=== PATIENT | female | born 1980 | race African-American/Black ===

== ENCOUNTER 2019-03-28 16:37 | Inpatient (IN) | payer MEDICAID ==
[~2019-03-28] VITALS: Ht 172.7 cm; Wt 146.5 kg
[2019-03-28] MEDS ORDERED: SODIUM CHLORIDE 0.9% 1,000 ML IV ONE (17:05)
[2019-03-28 17:44] LABS: BASOPHILS % 0.7 % (0.0-2.0); EOSINOPHILS % 6.2 % (0.0-5.0); HEMATOCRIT. 33.5 % (36.0-48.0); HEMOGLOBIN. 11.2 g/dL (12.0-16.0); MEAN CORPUSCULAR HEMOGLOBIN 28.8 pg (28.0-32.0); MEAN CORPUSCULAR VOLUME 86.5 fL (81.0-99.0); MEAN PLATELET VOLUME 9.3 fl (7.4-10.4); MONOCYTES % 6.7 % (2.0-8.0); NEUTROPHILS % 50.4 % (40.0-76.0); PLATELET 262 x1000/uL (130-400); RED BLOOD CELL COUNT 3.87 mill/uL (4.2-5.4)
[2019-03-28 17:45] LABS: CHLORIDE 103 mEq/L (98-107)
[2019-03-28 17:49] LABS: ETHANOL BLOOD < 10 mg/dL
[2019-03-28] MEDS ORDERED: ASPIRIN 81MG TABLET PO ONE (18:00)
[2019-03-28] MEDS ORDERED: POTASSIUM CHLORIDE 20MEQ TABLET SR PO ONE (18:00)
[2019-03-28] MEDS ORDERED: NITROGLYCERIN 0.4MG TABLET SL SL PRN (18:00)
[2019-03-28 18:16] LABS: HCG SCREEN NEGATIVE
[2019-03-28 18:18] LABS: D-DIMER 1.35 mg/L FEU (<0.50); PARTIAL THROMBOPLASTIN TIME 29.2 sec (23.4-31.0)
[2019-03-28 18:26] LABS: CLARITY URINE CLEAR (CLEAR); COLOR URINE YELLOW (YELLOW); KETONES URINE NEGATIVE (NEGATIVE); LEUKOCYTE ESTERASE URINE NEGATIVE (NEGATIVE); NITRITE URINE NEGATIVE (NEGATIVE); OCCULT BLOOD URINE 1+ (NEGATIVE); PH URINE 5.5 (4.5-8.0); PROTEIN URINE NEGATIVE (NEGATIVE); SPECIFIC GRAVITY URINE 1.011 (1.005-1.030); UROBILINOGEN URINE 0.2 E.U./dL (0.2-1.0)
[2019-03-28 18:40] LABS: CANNABINOID URINE SCREEN NEGATIVE (NEGATIVE); METHADONE URINE SCREEN NEGATIVE (NEGATIVE); PHENCYCLIDINE URINE SCREEN NEGATIVE (NEGATIVE)
[2019-03-28 18:41] LABS: *AMPHETAMINES SCREEN URINE NEGATIVE (NEGATIVE); *BARBITURATES SCREEN URINE NEGATIVE (NEGATIVE); *BENZODIAZEPINES SCREEN URINE NEGATIVE (NEGATIVE); *COCAINE SCREEN URINE NEGATIVE (NEGATIVE)
[2019-03-28 18:47] LABS: OPIATES URINE SCREEN PRESUMTIVE POSITIVE (NEGATIVE)
[2019-03-28] MEDS ORDERED: IOHEXOL-350 100 ML BOTTLE ONE ×3 (19:59→23:17)
[2019-03-28] MEDS ORDERED: MORPHINE SULFATE 4 MG/ML CPJ (NOT FOR IM USE) IV STA (21:14)
[2019-03-28] MEDS ORDERED: ONDANSETRON HCL 4MG/2ML INJ IV STA (21:14)
[2019-03-28 23:10] VITALS: BP 131/67
[2019-03-29] MEDS ORDERED: GABA-531 MT (00:05)
[2019-03-29] MEDS ORDERED: ATEN50TA MT (00:05)
[2019-03-29] MEDS ORDERED: AMLO10TA80 MT (00:05)
[2019-03-29] MEDS ORDERED: ONDANSETRON HCL 4MG/2ML INJ IV PRN (00:30)
[2019-03-29] MEDS: DIPHENHYDRAMINE 50MG/ML VIAL IV PRN ×4 (00:40→20:37)
[2019-03-29 01:08] LABS: BASOPHILS % 0.7 % (0.0-2.0); EOSINOPHILS % 5.1 % (0.0-5.0); HEMATOCRIT. 32.1 % (36.0-48.0); HEMOGLOBIN. 10.9 g/dL (12.0-16.0); LYMPHOCYTES % 35.9 % (20.0-50.0); MEAN CORPUSCULAR HEMOGLOBIN 29.4 pg (28.0-32.0); MEAN CORPUSCULAR VOLUME 86.8 fL (81.0-99.0); MONOCYTES % 7.8 % (2.0-8.0); NEUTROPHILS % 50.5 % (40.0-76.0); PLATELET 243 x1000/uL (130-400)
[2019-03-29 01:36] LABS: CHLORIDE 103 mEq/L (98-107)
[2019-03-29 01:44] LABS: CREATINE KINASE 197 IU/L (26-192)
[2019-03-29 01:46] LABS: CREATINE KINASE MB FRACTION < 1.0 ng/mL (0.5-3.6)
[2019-03-29 04:00] VITALS: BP 98/40
[2019-03-29] MEDS: GABAPENTIN 300MG CAPSULE PO SCH ×3 (05:59→22:19)
[2019-03-29] MEDS: HYDROCODONE/ACETAMINOPHEN 5/325MG TABLET PO PRN ×2 (06:41→14:30)
[2019-03-29 08:00] VITALS: BP 140/71
[2019-03-29] MEDS ORDERED: PNEUMOCOCCAL 23-VAL P-SAC VAC 0.5 ML IM ONE (08:00)
[2019-03-29] MEDS: AMLODIPINE 10MG TABLET PO SCH (08:38)
[2019-03-29] MEDS ORDERED: POTASSIUM CHLORIDE INJ 40 MEQ in DEXT 5% WATER 250 ML IV SCH (09:00)
[2019-03-29 09:42] LABS: CREATINE KINASE 171 IU/L (26-192)
[2019-03-29 09:44] LABS: CREATINE KINASE MB FRACTION < 1.0 ng/mL (0.5-3.6)
[2019-03-29 12:00] VITALS: BP 131/74
[2019-03-29] MEDS: LOSARTAN POTASSIUM 25 MG TABLET PO SCH (14:28)
[2019-03-29] MEDS: ENOXAPARIN 40MG/0.4ML SYR SUBCUT SCH ×2 (14:35→20:37)
[2019-03-29 16:00] VITALS: BP 145/69
[2019-03-29] MEDS ORDERED: POTASSIUM CHLORIDE 20MEQ TABLET SR PO NR (18:15)
[2019-03-29] MEDS: MORPHINE SULFATE 2 MG/ML CPJ (NOT FOR IM USE) IV PRN (18:44)
[2019-03-29 20:00] VITALS: BP_SYST 126; BP_SYST 135; BP_SYST 150; BP_DIAS 64; BP_DIAS 71; BP_DIAS 83
[2019-03-30] VITALS (8 sets, daily range): BP systolic 125–170; BP diastolic 56–95
[2019-03-30] MEDS: MORPHINE SULFATE 2 MG/ML CPJ (NOT FOR IM USE) IV PRN ×5 (00:25→22:49)
[2019-03-30] MEDS: DIPHENHYDRAMINE 50MG/ML VIAL IV PRN ×3 (04:22→18:56)
[2019-03-30] MEDS: GABAPENTIN 300MG CAPSULE PO SCH ×3 (06:09→22:36)
[2019-03-30 07:28] LABS: BASOPHILS % 0.5 % (0.0-2.0); EOSINOPHILS % 8.4 % (0.0-5.0); HEMOGLOBIN. 10.3 g/dL (12.0-16.0); LYMPHOCYTES % 38.8 % (20.0-50.0); MEAN CORPUSCULAR HEMOGLOBIN 28.8 pg (28.0-32.0); MEAN CORPUSCULAR VOLUME 86.8 fL (81.0-99.0); MEAN PLATELET VOLUME 9.6 fl (7.4-10.4); NEUTROPHILS % 44.3 % (40.0-76.0); PLATELET 226 x1000/uL (130-400); RED BLOOD CELL COUNT 3.58 mill/uL (4.2-5.4); RED CELL DISTRIBUTION WIDTH 15.5 % (11.6-14.6)
[2019-03-30 07:34] LABS: CHLORIDE 107 mEq/L (98-107)
[2019-03-30 07:43] LABS: CREATINE KINASE 114 IU/L (26-192)
[2019-03-30 07:45] LABS: CREATINE KINASE MB FRACTION < 1.0 ng/mL (0.5-3.6)
[2019-03-30] MEDS: AMLODIPINE 10MG TABLET PO SCH (08:44)
[2019-03-30] MEDS: HYDROCODONE/ACETAMINOPHEN 5/325MG TABLET PO PRN ×2 (08:45→15:22)
[2019-03-30] MEDS: ENOXAPARIN 40MG/0.4ML SYR SUBCUT SCH ×2 (08:46→22:48)
[2019-03-30] MEDS: LOSARTAN POTASSIUM 25 MG TABLET PO SCH ×2 (08:46→22:36)
[2019-03-30] MEDS: ATENOLOL 25MG TABLET PO SCH (15:22)
[2019-03-30] MEDS: ZOLPIDEM TARTRATE 5MG TABLET PO PRN (22:45)
[2019-03-31] VITALS: BP 154/86
[2019-03-31] MEDS: DIPHENHYDRAMINE 50MG/ML VIAL IV PRN ×2 (01:02→17:26)
[2019-03-31 04:00] VITALS: BP 146/75
[2019-03-31] MEDS: GABAPENTIN 300MG CAPSULE PO SCH ×3 (05:30→21:20)
[2019-03-31] MEDS: MORPHINE SULFATE 2 MG/ML CPJ (NOT FOR IM USE) IV PRN ×4 (05:30→23:00)
[2019-03-31 08:00] VITALS: BP 154/98
[2019-03-31] MEDS: LOSARTAN POTASSIUM 25 MG TABLET PO SCH (08:59)
[2019-03-31] MEDS: AMLODIPINE 10MG TABLET PO SCH (08:59)
[2019-03-31] MEDS: HYDROCODONE/ACETAMINOPHEN 5/325MG TABLET PO PRN ×2 (08:59→20:16)
[2019-03-31] MEDS: ATENOLOL 25MG TABLET PO SCH ×2 (08:59→17:42)
[2019-03-31] MEDS ORDERED: LIDOCAINE HCL 1% 20ML VIAL (Pyxis) INJ ONE (10:13)
[2019-03-31 12:55] VITALS: BP_SYST 193; BP_SYST 203; BP_SYST 206; BP_DIAS 107; BP_DIAS 118; BP_DIAS 90
[2019-03-31] MEDS ORDERED: CLONIDINE 0.1MG TABLET PO PRN (13:45)
[2019-03-31] MEDS: CLONIDINE 0.1MG TABLET PO SCH ×2 (14:49→21:20)
[2019-03-31] MEDS ORDERED: IOHEXOL-350 100 ML BOTTLE ONE (15:16)
[2019-03-31 16:00] VITALS: BP 149/90
[2019-03-31 20:00] VITALS: BP_SYST 152; BP_SYST 161; BP_SYST 166; BP_DIAS 75; BP_DIAS 89; BP_DIAS 97
[2019-03-31] MEDS: ENOXAPARIN 40MG/0.4ML SYR SUBCUT SCH (20:15)
[2019-03-31] MEDS: LOSARTAN POTASSIUM 50 MG TABLET PO SCH (20:18)
[2019-03-31] MEDS: ZOLPIDEM TARTRATE 5MG TABLET PO PRN (23:51)
[2019-04-01] VITALS: BP 143/85
[2019-04-01] MEDS: HYDROCODONE/ACETAMINOPHEN 5/325MG TABLET PO PRN ×2 (03:12→08:05)
[2019-04-01 03:45] VITALS: BP 130/68
[2019-04-01] MEDS: GABAPENTIN 300MG CAPSULE PO SCH ×2 (05:36→14:22)
[2019-04-01] MEDS: CLONIDINE 0.1MG TABLET PO SCH ×2 (05:36→14:22)
[2019-04-01] MEDS: MORPHINE SULFATE 2 MG/ML CPJ (NOT FOR IM USE) IV PRN ×3 (06:05→15:56)
[2019-04-01 08:00] VITALS: BP_SYST 138; BP_SYST 176; BP_SYST 183; BP_DIAS 100; BP_DIAS 107; BP_DIAS 72
[2019-04-01] MEDS: DIPHENHYDRAMINE 50MG/ML VIAL IV PRN (09:19)
[2019-04-01] MEDS: AMLODIPINE 10MG TABLET PO SCH (09:36)
[2019-04-01] MEDS: LOSARTAN POTASSIUM 50 MG TABLET PO SCH (09:36)
[2019-04-01] MEDS: ATENOLOL 25MG TABLET PO SCH ×2 (09:36→16:37)
[2019-04-01] MEDS: ENOXAPARIN 40MG/0.4ML SYR SUBCUT SCH (09:38)
[2019-04-01 12:00] VITALS: BP 133/75
[2019-04-01 14:35] VITALS: BP 133/75
[2019-04-01 15:56] VITALS: BP 133/75
== END 2019-04-01 17:40 | disposition home or self-care (01) | DRG 48 ==
LOC: ER 16:48 → 6WST 21:42 → EDBEDREQTM 21:46 → EDBEDREQ 21:46 → ENRESERV 22:31
PROVIDERS: ADMIT Internal Medicine; ATTEND Internal Medicine
PROC: 02HV33Z Insertion of Infusion Device into Superior Vena Cava, Percutaneous Approach (ICD-10-PCS; principal; 2019-03-31)
PROC: B5181ZA Fluoroscopy of Superior Vena Cava using Low Osmolar Contrast, Guidance (ICD-10-PCS; 2019-03-31)
PROC: B548ZZA Ultrasonography of Superior Vena Cava, Guidance (ICD-10-PCS; 2019-03-31)
DX: G90.8 Other disorders of autonomic nervous system (principal); G93.41 Metabolic encephalopathy; I42.8 Other cardiomyopathies; I11.0 Hypertensive heart disease with heart failure; E87.5 Hyperkalemia; I50.9 Heart failure, unspecified; Z68.42 Body mass index [BMI] 45.0-49.9, adult; R07.89 Other chest pain; E87.6 Hypokalemia; D64.9 Anemia, unspecified; R26.9 Unspecified abnormalities of gait and mobility; E66.9 Obesity, unspecified; Z82.49 Family history of ischemic heart disease and other diseases of the circulatory system; Z79.899 Other long term (current) drug therapy
CPT/HCPCS: 36415; 36573; 70496; 71045; 71275; 76937; 80048; 80305; 80320; 81003; 82550; 82553; 83605; 83735; 84145; 84443; 84484; 84703; 85379; 87804; 90732; 93005; 93306; 93880; 97162; 97165; 99285; C1725; J1200; J1650; J2270; J2405; J3480; J3490; J7030; J7060; Q9967; G0480

== ENCOUNTER 2019-06-27 14:28 | Inpatient (IN) | payer MEDICAID ==
[~2019-06-27] VITALS: Ht 172.7 cm; Wt 155.6 kg
[~2019-06-27 14:28] MED LIST: AMLO10TA80 MT; ATEN50TA MT; GABA-531 MT; HYDR-4001 MT; LOSA50TA41 MT
[2019-06-27] MEDS ORDERED: CLONIDINE 0.2MG TABLET PO ONE (21:45)
[2019-06-28] MEDS ORDERED: DIPHENHYDRAMINE 25MG CAPSULE PO PRN (07:00)
[2019-06-28] MEDS: ACETAMINOPHEN 325MG TABLET PO PRN ×2 (07:09→14:43)
[2019-06-28 12:00] VITALS: BP 149/75
[2019-06-28 12:57] VITALS: BP 149/75
[2019-06-28] MEDS: HYDROCODONE/ACETAMINOPHEN 5/325MG TABLET PO PRN (15:32)
[2019-06-28 16:00] VITALS: BP 134/82
[2019-06-28] MEDS: DIPHENHYDRAMINE 50MG/ML VIAL IV PRN ×2 (17:26→23:15)
[2019-06-28] MEDS: MORPHINE SULFATE 2 MG/ML CPJ (NOT FOR IM USE) IV PRN ×2 (17:28→21:55)
[2019-06-28] MEDS ORDERED: ACETAMINOPHEN 325MG TABLET PO PRN (18:15)
[2019-06-28] MEDS ORDERED: ONDANSETRON HCL 4MG/2ML INJ IV PRN (18:15)
[2019-06-28] MEDS: ATENOLOL 50 MG TABLET PO SCH (18:46)
[2019-06-28] MEDS: LOSARTAN POTASSIUM 50 MG TABLET PO SCH (18:46)
[2019-06-28] MEDS: AMLODIPINE 10MG TABLET PO SCH (18:46)
[2019-06-28 19:24] LABS: BASOPHILS % 0.5 % (0.0-2.0); HEMATOCRIT. 33.8 % (36.0-48.0); HEMOGLOBIN. 11.3 g/dL (12.0-16.0); LYMPHOCYTES % 38.3 % (20.0-50.0); MEAN CORPUSCULAR HEMOGLOBIN 28.9 pg (28.0-32.0); MEAN CORPUSCULAR VOLUME 85.9 fL (81.0-99.0); MEAN PLATELET VOLUME 9.3 fl (7.4-10.4); MONOCYTES % 8.7 % (2.0-8.0); NEUTROPHILS % 49.5 % (40.0-76.0); PLATELET 226 x1000/uL (130-400); RED BLOOD CELL COUNT 3.93 mill/uL (4.2-5.4); RED CELL DISTRIBUTION WIDTH 14.2 % (11.6-14.6)
[2019-06-28 19:31] LABS: CREATINE KINASE 155 IU/L (26-192)
[2019-06-28 19:32] LABS: CREATINE KINASE MB FRACTION < 1.0 ng/mL (0.5-3.6)
[2019-06-28 20:00] VITALS: BP 129/70
[2019-06-28 23:50] LABS: CREATINE KINASE 152 IU/L (26-192)
[2019-06-28 23:51] LABS: CREATINE KINASE MB FRACTION < 1.0 ng/mL (0.5-3.6)
[2019-06-29] VITALS: BP 140/87
[2019-06-29 00:55] LABS: *BARBITURATES SCREEN URINE NEGATIVE (NEGATIVE); CANNABINOID URINE SCREEN NEGATIVE (NEGATIVE); PHENCYCLIDINE URINE SCREEN NEGATIVE (NEGATIVE)
[2019-06-29 00:56] LABS: *AMPHETAMINES SCREEN URINE NEGATIVE (NEGATIVE); *BENZODIAZEPINES SCREEN URINE NEGATIVE (NEGATIVE); *COCAINE SCREEN URINE NEGATIVE (NEGATIVE); METHADONE URINE SCREEN NEGATIVE (NEGATIVE)
[2019-06-29 00:59] LABS: OPIATES URINE SCREEN PRESUMTIVE POSITIVE (NEGATIVE)
[2019-06-29 04:00] VITALS: BP 158/92
[2019-06-29] MEDS: MORPHINE SULFATE 2 MG/ML CPJ (NOT FOR IM USE) IV PRN ×3 (04:06→20:51)
[2019-06-29] MEDS: HYDROCODONE/ACETAMINOPHEN 5/325MG TABLET PO PRN (06:43)
[2019-06-29 07:28] LABS: BASOPHILS % 0.4 % (0.0-2.0); EOSINOPHILS % 3.5 % (0.0-5.0); HEMOGLOBIN. 11.1 g/dL (12.0-16.0); LYMPHOCYTES % 41.3 % (20.0-50.0); MEAN CORPUSCULAR HEMOGLOBIN 28.7 pg (28.0-32.0); MEAN CORPUSCULAR VOLUME 85.4 fL (81.0-99.0); MEAN PLATELET VOLUME 9.9 fl (7.4-10.4); MONOCYTES % 9.5 % (2.0-8.0); NEUTROPHILS % 45.3 % (40.0-76.0); PLATELET 218 x1000/uL (130-400); RED BLOOD CELL COUNT 3.86 mill/uL (4.2-5.4); RED CELL DISTRIBUTION WIDTH 14.5 % (11.6-14.6)
[2019-06-29 08:00] VITALS: BP 148/76
[2019-06-29 08:03] LABS: CHLORIDE 105 mEq/L (98-107)
[2019-06-29 08:12] LABS: CREATINE KINASE 134 IU/L (26-192)
[2019-06-29 08:13] LABS: CREATINE KINASE MB FRACTION < 1.0 ng/mL (0.5-3.6)
[2019-06-29] MEDS: ATENOLOL 50 MG TABLET PO SCH (08:53)
[2019-06-29] MEDS: LOSARTAN POTASSIUM 50 MG TABLET PO SCH ×2 (08:53→22:28)
[2019-06-29] MEDS: GABAPENTIN 300MG CAPSULE PO SCH ×3 (08:53→17:31)
[2019-06-29] MEDS: AMLODIPINE 10MG TABLET PO SCH (08:54)
[2019-06-29] MEDS ORDERED: ENOXAPARIN 40MG/0.4ML SYR SUBCUT SCH (09:00)
[2019-06-29] MEDS: DIPHENHYDRAMINE 50MG/ML VIAL IV PRN ×2 (09:03→17:31)
[2019-06-29 11:27] LABS: UCG SCREEN NEGATIVE
[2019-06-29 12:00] VITALS: BP 135/71
[2019-06-29] MEDS: ENOXAPARIN 40MG/0.4ML SYR SUBCUT SCH ×2 (12:10→20:50)
[2019-06-29 16:00] VITALS: BP 140/75
[2019-06-29] MEDS ORDERED: ALPRAZOLAM 0.25 MG TABLET PO NR (17:00)
[2019-06-29 20:00] VITALS: BP 174/93
[2019-06-29] MEDS ORDERED: HYDRALAZINE 20MG/ML VIAL IV PRN (22:15)
[2019-06-30] VITALS: BP 154/74
[2019-06-30 04:00] VITALS: BP 171/82
[2019-06-30] MEDS: MORPHINE SULFATE 2 MG/ML CPJ (NOT FOR IM USE) IV PRN ×3 (05:15→20:31)
[2019-06-30] MEDS: DIPHENHYDRAMINE 50MG/ML VIAL IV PRN ×3 (05:56→23:19)
[2019-06-30 08:00] VITALS: BP 163/99
[2019-06-30] MEDS: AMLODIPINE 10MG TABLET PO SCH (08:24)
[2019-06-30] MEDS: LOSARTAN POTASSIUM 50 MG TABLET PO SCH ×2 (08:24→20:30)
[2019-06-30] MEDS: ATENOLOL 50 MG TABLET PO SCH (08:24)
[2019-06-30] MEDS: GABAPENTIN 300MG CAPSULE PO SCH ×3 (08:24→17:33)
[2019-06-30] MEDS: ENOXAPARIN 40MG/0.4ML SYR SUBCUT SCH ×2 (08:25→20:30)
[2019-06-30] MEDS: HYDROCODONE/ACETAMINOPHEN 5/325MG TABLET PO PRN ×3 (10:38→23:34)
[2019-06-30] MEDS: NIFEDIPINE XL 90MG TAB PO SCH (10:51)
[2019-06-30 12:00] VITALS: BP 162/82
[2019-06-30] MEDS: ALPRAZOLAM 0.25 MG TABLET PO PRN (15:00)
[2019-06-30 20:00] VITALS: BP_SYST 136; BP_SYST 144; BP_SYST 145; BP_DIAS 73; BP_DIAS 78; BP_DIAS 86
[2019-07-01] VITALS: BP 124/67
[2019-07-01] MEDS: MORPHINE SULFATE 2 MG/ML CPJ (NOT FOR IM USE) IV PRN ×2 (02:17→09:05)
[2019-07-01] MEDS: ALPRAZOLAM 0.25 MG TABLET PO PRN (03:29)
[2019-07-01 04:00] VITALS: BP 150/84
[2019-07-01] MEDS: HYDROCODONE/ACETAMINOPHEN 5/325MG TABLET PO PRN ×2 (07:01→12:48)
[2019-07-01 07:41] LABS: BASOPHILS % 0.4 % (0.0-2.0); EOSINOPHILS % 3.5 % (0.0-5.0); HEMATOCRIT. 36.9 % (36.0-48.0); HEMOGLOBIN. 12.6 g/dL (12.0-16.0); LYMPHOCYTES % 24.9 % (20.0-50.0); MEAN CORPUSCULAR HEMOGLOBIN 28.9 pg (28.0-32.0); MEAN CORPUSCULAR VOLUME 84.8 fL (81.0-99.0); MEAN PLATELET VOLUME 9.5 fl (7.4-10.4); NEUTROPHILS % 64.2 % (40.0-76.0); PLATELET 251 x1000/uL (130-400); RED BLOOD CELL COUNT 4.35 mill/uL (4.2-5.4); RED CELL DISTRIBUTION WIDTH 14.4 % (11.6-14.6)
[2019-07-01 07:48] LABS: CHLORIDE 106 mEq/L (98-107)
[2019-07-01 08:00] VITALS: BP 142/71
[2019-07-01] MEDS: ATENOLOL 50 MG TABLET PO SCH (09:03)
[2019-07-01] MEDS: NIFEDIPINE XL 90MG TAB PO SCH (09:03)
[2019-07-01] MEDS: GABAPENTIN 300MG CAPSULE PO SCH ×2 (09:03→12:38)
[2019-07-01] MEDS: ENOXAPARIN 40MG/0.4ML SYR SUBCUT SCH (09:04)
[2019-07-01] MEDS: LOSARTAN POTASSIUM 50 MG TABLET PO SCH (09:38)
[2019-07-01 12:00] VITALS: BP 156/83
[2019-07-01] MEDS: DIPHENHYDRAMINE 50MG/ML VIAL IV PRN (12:38)
[2019-07-01 15:01] VITALS: BP 156/83
== END 2019-07-01 18:00 | disposition home or self-care (01) | DRG 48 ==
LOC: ER 14:28 → 5WST 06-28 01:04 → EDBEDREQTM 06-28 01:06 → EDBEDREQ 06-28 01:06 → ENRESERV 06-28 11:08
PROVIDERS: ADMIT Internal Medicine; ATTEND Internal Medicine
PROC: 4A00X4Z Measurement of Central Nervous Electrical Activity, External Approach (ICD-10-PCS; principal; 2019-06-30)
DX: G90.8 Other disorders of autonomic nervous system (principal); I42.9 Cardiomyopathy, unspecified; E66.01 Morbid (severe) obesity due to excess calories; D57.1 Sickle-cell disease without crisis; Z68.43 Body mass index [BMI] 50.0-59.9, adult; I10 Essential (primary) hypertension; M19.90 Unspecified osteoarthritis, unspecified site; Z87.891 Personal history of nicotine dependence; Z88.8 Allergy status to other drugs, medicaments and biological substances; Z79.899 Other long term (current) drug therapy; Z98.891 History of uterine scar from previous surgery
CPT/HCPCS: 36415; 80048; 80305; 80320; 81025; 82550; 82553; 82962; 84484; 85025; 93306; 93880; 93970; 97162; 99285; J0360; J1200; J1650; J2270; Q0163; G0480

== ENCOUNTER 2019-07-25 07:48 | Inpatient (IN) | payer MEDICAID ==
[~2019-07-25] VITALS: Ht 177.8 cm; Wt 161.9 kg
[2019-07-25] MEDS ORDERED: HYDROCODONE/ACETAMINOPHEN 5/325MG TABLET PO STA (11:06)
[2019-07-25 15:01] LABS: CHLORIDE 108 mEq/L (98-107)
[2019-07-25 15:07] LABS: BASOPHILS % 0.4 % (0.0-2.0); EOSINOPHILS % 1.8 % (0.0-5.0); HEMOGLOBIN. 11.5 g/dL (12.0-16.0); LYMPHOCYTES % 25.7 % (20.0-50.0); MEAN CORPUSCULAR HEMOGLOBIN 28.6 pg (28.0-32.0); MEAN CORPUSCULAR VOLUME 84.6 fL (81.0-99.0); MEAN PLATELET VOLUME 9.3 fl (7.4-10.4); MONOCYTES % 6.1 % (2.0-8.0); PLATELET 250 x1000/uL (130-400); RED BLOOD CELL COUNT 4.02 mill/uL (4.2-5.4); RED CELL DISTRIBUTION WIDTH 14.4 % (11.6-14.6)
[2019-07-25] MEDS ORDERED: NA PHOS,M-B/NA PHOS,DI-BA ENEMA 118ML PR PRN (17:15)
[2019-07-25] MEDS ORDERED: ENOXAPARIN 40MG/0.4ML SYR SUBCUT SCH (17:15)
[2019-07-25] MEDS ORDERED: DOCUSATE SODIUM 100MG CAPSULE PO PRN (17:15)
[2019-07-25] MEDS ORDERED: ONDANSETRON HCL 4MG/2ML INJ IV PRN (17:15)
[2019-07-25] MEDS ORDERED: ACETAMINOPHEN 325MG TABLET PO PRN (17:15)
[2019-07-25] MEDS ORDERED: MAGNESIUM/ALUMINUM HYDROXIDE/SIMETHICONE 30ML UDC PO PRN (17:15)
[2019-07-25] MEDS ORDERED: IPRATROPIUM/ALBUTEROL 0.5-3(2.5)MG/3ML NEB NEB PRN (17:15)
[2019-07-25] MEDS ORDERED: GUAIFENESIN 200MG/10ML SUGAR FREE UDC PO PRN (17:15)
[2019-07-25] MEDS: SODIUM CHLORIDE 0.45% 1,000 ML IV SCH (17:32)
[2019-07-25] MEDS: MORPHINE SULFATE 2 MG/ML CPJ (NOT FOR IM USE) IV PRN ×2 (18:20→22:40)
[2019-07-25] MEDS: DIPHENHYDRAMINE 50MG/ML VIAL IV PRN ×2 (18:20→22:40)
[2019-07-25 23:34] LABS: CHLORIDE 110 mEq/L (98-107)
[2019-07-26] MEDS: HYDROCODONE/ACETAMINOPHEN 5/325MG TABLET PO PRN ×3 (01:51→17:59)
[2019-07-26] MEDS: DIPHENHYDRAMINE 50MG/ML VIAL IV PRN ×3 (07:09→22:10)
[2019-07-26 09:30] VITALS: BP 131/71
[2019-07-26] MEDS: ASPIRIN 81MG EC TABLET PO SCH (09:49)
[2019-07-26] MEDS: ENOXAPARIN 40MG/0.4ML SYR SUBCUT SCH ×2 (09:50→20:24)
[2019-07-26 12:00] VITALS: BP 158/86
[2019-07-26] MEDS: SODIUM CHLORIDE 0.45% 1,000 ML IV SCH (13:23)
[2019-07-26] MEDS: MORPHINE SULFATE 2 MG/ML CPJ (NOT FOR IM USE) IV PRN ×2 (13:26→23:26)
[2019-07-26 16:00] VITALS: BP 125/56
[2019-07-26 16:10] LABS: CHLORIDE 109 mEq/L (98-107)
[2019-07-26 16:13] LABS: BASOPHILS % 0.2 % (0.0-2.0); EOSINOPHILS % 2.1 % (0.0-5.0); HEMATOCRIT. 32.6 % (36.0-48.0); LYMPHOCYTES % 32.9 % (20.0-50.0); MEAN CORPUSCULAR HEMOGLOBIN 28.7 pg (28.0-32.0); MEAN PLATELET VOLUME 9.5 fl (7.4-10.4); MONOCYTES % 5.4 % (2.0-8.0); NEUTROPHILS % 59.4 % (40.0-76.0); PLATELET 228 x1000/uL (130-400); RED BLOOD CELL COUNT 3.83 mill/uL (4.2-5.4); RED CELL DISTRIBUTION WIDTH 14.2 % (11.6-14.6)
[2019-07-26 16:19] LABS: LDL CHOLESTEROL 85 mg/dL (5-100); T4 FREE 0.98 ng/dL (0.76-1.46)
[2019-07-26 16:20] LABS: HDL CHOLESTEROL 34 mg/dL (40-59)
[2019-07-26] MEDS ORDERED: HYDR-4009 MT (17:03)
[2019-07-26] MEDS ORDERED: NIFE90TA60 MT (17:06)
[2019-07-26 20:00] VITALS: BP 154/79
[2019-07-26] MEDS: LORAZEPAM 2MG/ML CPJ IV PRN (20:23)
[2019-07-27] VITALS: BP 151/88
[2019-07-27] MEDS: HYDROCODONE/ACETAMINOPHEN 5/325MG TABLET PO PRN ×2 (02:08→09:10)
[2019-07-27 04:00] VITALS: BP 156/87
[2019-07-27] MEDS: LORAZEPAM 2MG/ML CPJ IV PRN ×3 (04:03→21:35)
[2019-07-27 06:14] LABS: BASOPHILS % 0.3 % (0.0-2.0); EOSINOPHILS % 1.1 % (0.0-5.0); HEMATOCRIT. 32.8 % (36.0-48.0); LYMPHOCYTES % 28.7 % (20.0-50.0); MEAN CORPUSCULAR HEMOGLOBIN 28.7 pg (28.0-32.0); MEAN CORPUSCULAR VOLUME 85.9 fL (81.0-99.0); MEAN PLATELET VOLUME 9.6 fl (7.4-10.4); NEUTROPHILS % 64.9 % (40.0-76.0); PLATELET 213 x1000/uL (130-400); RED BLOOD CELL COUNT 3.82 mill/uL (4.2-5.4); RED CELL DISTRIBUTION WIDTH 14.3 % (11.6-14.6)
[2019-07-27 06:33] LABS: CHLORIDE 109 mEq/L (98-107)
[2019-07-27] MEDS: MORPHINE SULFATE 2 MG/ML CPJ (NOT FOR IM USE) IV PRN ×2 (06:42→12:03)
[2019-07-27 08:00] VITALS: BP 138/83
[2019-07-27] MEDS: ENOXAPARIN 40MG/0.4ML SYR SUBCUT SCH ×2 (09:08→21:35)
[2019-07-27] MEDS: ASPIRIN 81MG EC TABLET PO SCH (09:08)
[2019-07-27] MEDS: SODIUM CHLORIDE 0.45% 1,000 ML IV SCH (09:09)
[2019-07-27 12:30] VITALS: BP 175/98
[2019-07-27] MEDS: CLONIDINE 0.1MG TABLET PO PRN (13:37)
[2019-07-27] MEDS: DIPHENHYDRAMINE 50MG/ML VIAL IV PRN ×2 (13:37→20:34)
[2019-07-27 16:07] VITALS: BP 126/69
[2019-07-27 20:00] VITALS: BP 129/65
[2019-07-28] VITALS: BP 138/75
[2019-07-28] MEDS: MORPHINE SULFATE 2 MG/ML CPJ (NOT FOR IM USE) IV PRN ×2 (01:11→13:01)
[2019-07-28] MEDS: LORAZEPAM 2MG/ML CPJ IV PRN ×3 (03:26→16:15)
[2019-07-28 04:00] VITALS: BP 145/76
[2019-07-28] MEDS: SODIUM CHLORIDE 0.45% 1,000 ML IV SCH (05:32)
[2019-07-28] MEDS: HYDROCODONE/ACETAMINOPHEN 5/325MG TABLET PO PRN (06:09)
[2019-07-28 08:00] VITALS: BP 173/94
[2019-07-28] MEDS: CLONIDINE 0.1MG TABLET PO PRN ×2 (09:24→16:46)
[2019-07-28] MEDS: ENOXAPARIN 40MG/0.4ML SYR SUBCUT SCH (09:24)
[2019-07-28] MEDS: ASPIRIN 81MG EC TABLET PO SCH (09:24)
[2019-07-28 12:00] VITALS: BP 148/74
[2019-07-28 16:00] VITALS: BP 181/100
[2019-07-28 18:04] LABS: HCG SCREEN INDETERMINATE
[2019-07-28 19:11] VITALS: BP 159/89
== END 2019-07-28 19:48 | disposition home or self-care (01) | DRG 203 ==
LOC: ER 07:48 → 5WST 15:18 → ENRESERV 07-26 07:08 → 5WST 07-28 15:39
PROVIDERS: ADMIT Internal Medicine; ATTEND Internal Medicine
DX: M94.0 Chondrocostal junction syndrome [Tietze] (principal); D57.1 Sickle-cell disease without crisis; R55 Syncope and collapse; E86.0 Dehydration; R07.9 Chest pain, unspecified; I10 Essential (primary) hypertension; D64.9 Anemia, unspecified; R40.4 Transient alteration of awareness; Z88.8 Allergy status to other drugs, medicaments and biological substances; Z79.891 Long term (current) use of opiate analgesic; Z79.899 Other long term (current) drug therapy
CPT/HCPCS: 36415; 71045; 80048; 80053; 80061; 82962; 83880; 84439; 84443; 84484; 84703; 85025; 93005; 99285; J1200; J1650; J2060; J2270; J2405

== ENCOUNTER 2019-09-20 17:12 | Inpatient (IN) | payer MEDICAID ==
[~2019-09-20] VITALS: Ht 172.7 cm; Wt 137.4 kg
[~2019-09-20 17:12] MED LIST changes: -AMLO10TA80 MT; -HYDR-4001 MT; +HYDR-4009 MT; +NIFE90TA60 MT
[2019-09-20] MEDS ORDERED: SODIUM CHLORIDE 0.9% 1,000 ML IV ONE ×2 (17:37→19:25)
[2019-09-20 17:58] LABS: CLARITY URINE CLEAR (CLEAR); COLOR URINE YELLOW (YELLOW); KETONES URINE NEGATIVE (NEGATIVE); LEUKOCYTE ESTERASE URINE TRACE (NEGATIVE); NITRITE URINE NEGATIVE (NEGATIVE); OCCULT BLOOD URINE NEGATIVE (NEGATIVE); PH URINE 6.5 (4.5-8.0); PROTEIN URINE NEGATIVE (NEGATIVE); SPECIFIC GRAVITY URINE 1.005 (1.005-1.030); UROBILINOGEN URINE 0.2 E.U./dL (0.2-1.0)
[2019-09-20 18:37] LABS: BASOPHILS % 0.8 % (0.0-2.0); EOSINOPHILS % 3.7 % (0.0-5.0); HEMATOCRIT. 37.6 % (36.0-48.0); HEMOGLOBIN. 12.5 g/dL (12.0-16.0); LYMPHOCYTES % 35.6 % (20.0-50.0); MEAN CORPUSCULAR HEMOGLOBIN 28.4 pg (28.0-32.0); MEAN CORPUSCULAR VOLUME 85.3 fL (81.0-99.0); MEAN PLATELET VOLUME 9.2 fl (7.4-10.4); MONOCYTES % 6.7 % (2.0-8.0); NEUTROPHILS % 53.2 % (40.0-76.0); PLATELET 242 x1000/uL (130-400); RED CELL DISTRIBUTION WIDTH 14.7 % (11.6-14.6)
[2019-09-20 18:43] LABS: CHLORIDE 103 mEq/L (98-107)
[2019-09-20 18:50] LABS: D-DIMER 1.67 mg/L FEU (<0.50); INR 0.9; PARTIAL THROMBOPLASTIN TIME 27.6 sec (23.4-31.0)
[2019-09-20 19:08] LABS: HCG SCREEN NEGATIVE
[2019-09-20] MEDS ORDERED: MORPHINE SULFATE 4 MG/ML CPJ (NOT FOR IM USE) IV STA (19:25)
[2019-09-20] MEDS ORDERED: ONDANSETRON HCL 4MG/2ML INJ IV STA (19:25)
[2019-09-20] MEDS ORDERED: NITROGLYCERIN 0.4MG TABLET SL SL PRN (19:30)
[2019-09-20] MEDS ORDERED: ASPIRIN 81MG TABLET PO ONE (19:30)
[2019-09-20] MEDS ORDERED: SODIUM CHLORIDE 0.45% 1,000 ML IV SCH (22:41)
[2019-09-20] MEDS ORDERED: NA PHOS,M-B/NA PHOS,DI-BA ENEMA 118ML PR PRN ×2 (22:45→23:45)
[2019-09-20] MEDS ORDERED: ACETAMINOPHEN 325MG TABLET PO PRN (22:45)
[2019-09-20] MEDS ORDERED: LORAZEPAM 2MG/ML CPJ IV PRN (22:45)
[2019-09-20] MEDS ORDERED: DOCUSATE SODIUM 100MG CAPSULE PO PRN (22:45)
[2019-09-20] MEDS ORDERED: IPRATROPIUM/ALBUTEROL 0.5-3(2.5)MG/3ML NEB NEB PRN (22:45)
[2019-09-20] MEDS ORDERED: ENOXAPARIN 40MG/0.4ML SYR SUBCUT SCH ×2 (22:45→23:45)
[2019-09-20] MEDS ORDERED: MAGNESIUM/ALUMINUM HYDROXIDE/SIMETHICONE 30ML UDC PO PRN (22:45)
[2019-09-20] MEDS ORDERED: ONDANSETRON HCL 4MG/2ML INJ IV PRN (22:45)
[2019-09-20] MEDS ORDERED: GUAIFENESIN 200MG/10ML SUGAR FREE UDC PO PRN (22:45)
[2019-09-20] MEDS ORDERED: CLONIDINE 0.1MG TABLET PO PRN (22:45)
[2019-09-20 23:26] LABS: CHLORIDE 103 mEq/L (98-107)
[2019-09-21 00:30] VITALS: BP 151/88
[2019-09-21] MEDS: SODIUM CHLORIDE 0.45% 1,000 ML IV SCH ×2 (00:49→10:00)
[2019-09-21] MEDS ORDERED: AMLO10TA80 PO (01:51)
[2019-09-21] MEDS ORDERED: CYCL10TA7 PO (01:52)
[2019-09-21] MEDS ORDERED: HYDR25TA PO (01:53)
[2019-09-21] MEDS: HYDROCODONE/ACETAMINOPHEN 5/325MG TABLET PO PRN ×2 (02:05→08:52)
[2019-09-21] MEDS: DIPHENHYDRAMINE 50MG/ML VIAL IV PRN ×4 (02:05→21:49)
[2019-09-21 05:39] VITALS: BP 123/72
[2019-09-21] MEDS: MORPHINE SULFATE 2 MG/ML CPJ (NOT FOR IM USE) IV PRN ×3 (05:43→18:21)
[2019-09-21 08:00] VITALS: BP 146/81
[2019-09-21] MEDS: ASPIRIN 81MG EC TABLET PO SCH (08:49)
[2019-09-21] MEDS ORDERED: ASPIRIN 81MG EC TABLET PO SCH (09:00)
[2019-09-21] MEDS ORDERED: POTASSIUM CHLORIDE INJ 40 MEQ in DEXT 5% WATER 500 ML IV SCH (09:00)
[2019-09-21] MEDS ORDERED: ENOXAPARIN 30MG/0.3ML SYR SUBCUT SCH (09:00)
[2019-09-21] MEDS ORDERED: POTASSIUM CHLORIDE 20MEQ TABLET SR PO SCH ×2 (11:30→16:00)
[2019-09-21 12:00] VITALS: BP 138/62
[2019-09-21 12:36] LABS: CHLORIDE 104 mEq/L (98-107)
[2019-09-21 16:00] VITALS: BP 149/67
[2019-09-21 16:14] LABS: CREATINE KINASE 147 IU/L (26-192)
[2019-09-21 16:15] LABS: CREATINE KINASE MB FRACTION < 1.0 ng/mL (0.5-3.6)
[2019-09-21 16:16] LABS: CHLORIDE 104 mEq/L (98-107)
[2019-09-21 16:27] LABS: T4 FREE 0.92 ng/dL (0.76-1.46)
[2019-09-21 20:00] VITALS: BP 143/69
[2019-09-21] MEDS: ENOXAPARIN 40MG/0.4ML SYR SUBCUT SCH (21:41)
[2019-09-22] VITALS: BP 132/67
[2019-09-22 00:42] LABS: CREATINE KINASE 124 IU/L (26-192)
[2019-09-22 00:44] LABS: CREATINE KINASE MB FRACTION < 1.0 ng/mL (0.5-3.6)
[2019-09-22 04:10] VITALS: BP 110/71
[2019-09-22] MEDS: DIPHENHYDRAMINE 50MG/ML VIAL IV PRN (04:21)
[2019-09-22] MEDS: HYDROCODONE/ACETAMINOPHEN 5/325MG TABLET PO PRN ×2 (04:24→12:56)
[2019-09-22 08:00] VITALS: BP 169/85
[2019-09-22 08:23] LABS: CREATINE KINASE 114 IU/L (26-192)
[2019-09-22 08:25] LABS: CREATINE KINASE MB FRACTION < 1.0 ng/mL (0.5-3.6)
[2019-09-22] MEDS: ASPIRIN 81MG EC TABLET PO SCH (08:56)
[2019-09-22] MEDS: ENOXAPARIN 40MG/0.4ML SYR SUBCUT SCH (08:59)
[2019-09-22] MEDS: MORPHINE SULFATE 2 MG/ML CPJ (NOT FOR IM USE) IV PRN (09:00)
[2019-09-22 11:35] VITALS: BP_SYST 151; BP_SYST 169; BP_DIAS 63; BP_DIAS 85
[2019-09-22 12:00] VITALS: BP 159/69
[2019-09-22] MEDS ORDERED: AMLODIPINE 5MG TABLET PO SCH ×2 (12:00)
[2019-09-22 13:32] VITALS: BP 163/89
== END 2019-09-22 14:15 | disposition home or self-care (01) | DRG 48 ==
LOC: ER 17:12 → 5WST 19:30 → ENRESERV 23:09 → ER 23:55 → 5WST 09-21 01:00
PROVIDERS: ADMIT Internal Medicine; ATTEND Internal Medicine
DX: G90.8 Other disorders of autonomic nervous system (principal); I11.9 Hypertensive heart disease without heart failure; D57.1 Sickle-cell disease without crisis; R00.1 Bradycardia, unspecified; E66.01 Morbid (severe) obesity due to excess calories; J45.909 Unspecified asthma, uncomplicated; E78.5 Hyperlipidemia, unspecified; E87.6 Hypokalemia; Z88.8 Allergy status to other drugs, medicaments and biological substances; Z68.42 Body mass index [BMI] 45.0-49.9, adult; Z79.1 Long term (current) use of non-steroidal anti-inflammatories (NSAID); Z79.899 Other long term (current) drug therapy; Z79.51 Long term (current) use of inhaled steroids
CPT/HCPCS: 36415; 71045; 78582; 80048; 80053; 80061; 81003; 82550; 82553; 83036; 83880; 84132; 84439; 84443; 84484; 84703; 85025; 85044; 85379; 93005; 93306; 93880; 93970; 99285; A9558; J1200; J1650; J2270; J2405; J3480; J7030; J7060